=== PATIENT | female | born 1985 | race Caucasian/White ===

== ENCOUNTER 2018-01-09 14:25 | Outpatient (CLI) | payer OTHER ==
--- NOTE | 2018-01-09 16:10 | ULT ---
ULTRASOUND OB 01/09/18 HISTORY: Placenta previa. COMPARISON: None. FINDINGS: Ultrasound pope scale, color doppler analysis of the gravid uterus is performed. The tip of the placenta is separate from the cervix. No placenta previa. The adnexa is normal. Single viable intrauterine with an average ultrasound age of 30 week, 1 day. Estimated delivery of 03/19/18. Estimated weight is 3 lb. 5 oz, 56th percentile. Biparietal diameter 7.49 cm, 30 week, 0 day, 53rd percentile. Head circumference 27.6 cm, 30 week, 1 day, 32nd percentile. Abdominal circumference 25.94 cm, 30 week, 1 day, 61st percentile. Femur length 5.74 cm, 30 week, 1 day, 49th percentile. Amniotic fluid index is 31.9 cm. position is vertex. Placenta is posterior. The visualized cerv icothoracic and lumbar spine as well as sacrum, bladder, diaphragm, left and right kidney, three vess el cord, stomach, looks all unremarkable. IMPRESSION: No evidence of placenta previa. POS: [facility]
== END 2018-01-09 14:26 | disposition home or self-care (01) ==
LOC: SCSULT 14:25
PROVIDERS: ATTEND Family Medicine
DX: O44.23 Partial placenta previa NOS or without hemorrhage, third trimester (principal)
CPT/HCPCS: 76816

== ENCOUNTER 2018-01-09 16:33 | Day surgery (SDC) | payer OTHER ==
[2018-01-09 17:24] VITALS: BMI 35.2
[2018-01-09 17:45] VITALS: BP 149/80; TEMP 98.9
--- NOTE | 2018-01-09 18:00 | PDOC.LDHP ---
Labor and Delivery H&P Chief complaint: other (Elevated BPs) HPI: 32 y/o at 29w4d, patient of Dr. Yessenia Calloway, presents with elevated BPs at home. Denies PIERCE, vision changes, RUQ pain, VB, ctx, LOF, or decreased FM. Has a history of CHTN, not on any medications. Recently did 3 hour GTT but unsure of results. ROS neg for HEENT, cv, pulm, gi, gu, neuro, psych, skin, musculoskeletal or constitutional symptoms other than mentioned above. OB History Details: 1 prior Current complications: hypertension Past Medical History: Tachycardia CHTN Current medications: pre- vitamins, iron, other (melatonin) Previous surgical history: other (LEEP) Allergies/Adverse Reactions: Allergies Allergy/AdvReac Type Severity Reaction Status Date / Time No Known Allergies Allergy Unverified 01/09/18 17:44 Social history: none - Physical Exam Vital signs reviewed and normal: yes General: NAD, resting Lungs: nonlabored breathing Abdomen: gravid Extremeties: no edema FHT: category 1 (120s, mod variability, + accels, no decels) [place] contractions every: none - OB Labs Additional Labs: Laboratory Results - last 24 hr 01/09/18 01/09/18 01/09/18 18:11 18:11 18:40 WBC 12.6 H RBC 3.53 L Hgb 11.4 L Hct 32.1 L MCV 90.8 MCH 32.2 H MCHC 35.4 RDW 12.7 Plt Count 389 MPV 5.8 L Neutrophils % 73.2 Lymphocytes % 20.4 L Monocytes % 5.9 Eosinophils % 0.4 Basophils % 0.2 Neutrophils # 9.2 H Lymphocytes # 2.6 Monocytes # 0.7 H Eosinophils # 0.0 Basophils # 0.0 Sodium 139 Potassium 3.8 Chloride 109 H Carbon Dioxide 19 L Anion Gap 15 BUN 4 L Creatinine 0.60 Estimated GFR (MDRD) Greater than 90 Glucose 80 Calcium 9.5 Total Bilirubin 0.3 AST 14 ALT 10 Alkaline Phosphatase 82 Serum Total Protein 7.3 Albumin 3.8 Globulin 3.5 Albumin/Globulin Ratio 1.1 L U Random Total Protein Less than 10 Urine Creatinine 37.15 L - Assessment 32 y/o at 29w4d with no e/o preeclampsia. BPs mild range initially but normal now. status reassuring with reactive NST. - Plan -: D/c home with precautions. Advised to continue monitoring BPs and bring cuff to next appointment. Make appointment with Dr. Calloway next week.
[2018-01-09 18:19] LABS: #Lymphocytes 2.6 thou/uL (1.20-3.40); #Monocytes 0.7 thou/uL (0.11-0.59); #Neutrophils 9.2 thou/uL (1.40-6.50); %Basophils 0.2 % (0.0-1.0); %Eosinophils 0.4 % (0.0-10.0); %Lymphocytes 20.4 % (21.0-51.0); %Monocytes 5.9 % (0.0-10.0); %Neutrophils 73.2 % (42.0-75.0); Hemoglobin 11.4 g/dL (12.0-16.0); Mean Corpuscular HGB CONC 35.4 g/dL (32.0-36.0); Mean Corpuscular Hemoglobin 32.2 pg (27.0-31.0); Mean Corpuscular Volume 90.8 fL (78.0-98.0); Mean Platelet Volume 5.8 fL (7.4-10.4); Platelet Count 389 thou/uL (130-400); RBC Distribution Width 12.7 % (11.5-14.5); Red Blood Cell (RBC) Count 3.53 mill/uL (4.20-5.40); White Blood Cell (WBC) Count 12.6 thou/uL (4.8-10.8)
[2018-01-09 18:42] LABS: ALT (SGPT) 10 U/L (8-55); AST (SGOT) 14 U/L (5-34); Albumin 3.8 g/dL (3.5-5.0); Alkaline Phosphatase 82 U/L (40-150); Anion Gap 15 mmol/L (10-20); BUN (Urea Nitrogen) 4 mg/dL (7.0-18.7); Bilirubin, Total 0.3 mg/dL (0.2-1.2); Calc. Creatinine Clearance 226 mL/min (70-130); Calcium 9.5 mg/dL (7.8-10.44); Carbon Dioxide 19 mmol/L (22-29); Chloride 109 mmol/L (98-107); Estimated GFR-MDRD Greater than 90; Globulin 3.5 g/dL (2.4-3.5); Glucose 80 mg/dL (70-105); Potassium 3.8 mmol/L (3.5-5.1); Protein, Total 7.3 g/dL (6.0-8.3); Sodium 139 mmol/L (136-145)
[2018-01-09 19:36] LABS: Creatinine, Urine 37.15 mg/dL (47-110); Protein, Urine Random Quant Less than 10 mg/dL (1-14)
[2018-01-09] MEDS ORDERED: Insulin Glargine 8 UNITS in Pre-Filled Syringe 1 EACH SC SCH (21:00)
== END 2018-01-09 20:16 | disposition home or self-care (01) ==
LOC: L&D/OP 16:33
PROVIDERS: ATTEND Family Medicine
DX: O10.913 Unspecified pre-existing hypertension complicating pregnancy, third trimester (principal); Z3A.29 29 weeks gestation of pregnancy
CPT/HCPCS: 36415; 80053; 82570; 84156; 85025; 99283

== ENCOUNTER 2018-03-18 06:51 | Inpatient (IN) | payer OTHER ==
[2018-03-18] MEDS ORDERED: Bupivacaine HCl 0.5%/Epinephrine 1:200,000/PF 30 ml Vial ONE (11:00)
[2018-03-18] MEDS ORDERED: Lidocaine 2% MPF 10 ML AMP (For Epidural Use) ONE (11:00)
[2018-03-18] MEDS ORDERED: Bupivacaine/Epinephrine 0.25% 30 ML VIAL ONE (11:00)
[2018-03-18] MEDS ORDERED: Bupivacaine 0.25% HCL 30 ML VIAL ONE (11:00)
[2018-03-18 20:50] VITALS: BMI 39.6
[2018-03-18] MEDS ORDERED: Lidocaine 1% (PF) 30 ML VIAL SC PRN (20:50)
[2018-03-18] MEDS ORDERED: Butorphanol Tartrate 1 MG/ML VIAL SLOW IVP PRN (20:50)
[2018-03-18] MEDS ORDERED: Acetaminophen 500 MG TAB PO PRN (20:50)
[2018-03-18] MEDS ORDERED: Acetaminophen/Codeine 30-300mg Tablet PO PRN (20:50)
[2018-03-18] MEDS ORDERED: Misoprostol 200 MCG TAB PR PRN (20:50)
[2018-03-18] MEDS ORDERED: Ondansetron PF 4 MG/2 ML Vial IVP PRN (20:50)
[2018-03-18] MEDS ORDERED: Promethazine HCl 25 MG/ML VIAL IM PRN (20:50)
[2018-03-18] MEDS ORDERED: Zolpidem Tartrate 5 MG TAB PO PRN (20:50)
[2018-03-18] MEDS ORDERED: NS w/ Oxytocin 10 units 500 ML IV SCH ×2 (20:50)
[2018-03-18] MEDS ORDERED: NS / Oxytocin 40 units/1000ml 1,000 ML IV PRN (20:50)
[2018-03-18] MEDS ORDERED: HYDROcodone/Acetaminophen 5/325 mg Tablet PO PRN (20:50)
[2018-03-18] MEDS ORDERED: Ibuprofen 800 MG TAB PO PRN (20:50)
[2018-03-18] MEDS: Lactated Ringer's 1,000 ML IV SCH (21:15)
[2018-03-18] MEDS: Misoprostol 100 MCG TAB VAG SCH (21:40)
[2018-03-18 21:43] LABS: Hemoglobin 11.2 g/dL (12.0-16.0); Mean Corpuscular HGB CONC 34.6 g/dL (32.0-36.0); Mean Corpuscular Hemoglobin 31.7 pg (27.0-31.0); Mean Corpuscular Volume 91.5 fL (78.0-98.0); Mean Platelet Volume 6.5 fL (7.4-10.4); Platelet Count 389 thou/uL (130-400); RBC Distribution Width 12.9 % (11.5-14.5); Red Blood Cell (RBC) Count 3.54 mill/uL (4.20-5.40); White Blood Cell (WBC) Count 9.2 thou/uL (4.8-10.8)
[2018-03-18 22:21] LABS: Syphilis Antibody Nonreactive (Nonreactive); Syphilis Antibody Index 0.04 S/CO (<1.00 Non-Reactive)
[2018-03-18 23:14] LABS: HBSAg Index 0.18 S/CO (0-0.99); Hep B Surf Ag Non-Reactive S/CO (NonReactive)
[2018-03-19] MEDS ORDERED: Penicillin G Potassium 5 MILL.UNITS in Sodium Chloride 0.9% 100 ML IVPB SCH (01:15)
[2018-03-19] MEDS: Lactated Ringer's 1,000 ML IV SCH ×2 (04:51→18:41)
[2018-03-19] MEDS: Misoprostol 100 MCG TAB VAG SCH ×3 (04:51→18:41)
[2018-03-19] MEDS: Penicillin G 2.5 MILL.units 2.5 MILL.UNITS in Premix Bag 1 BAG IVPB SCH ×3 (04:52→18:41)
[2018-03-19] MEDS ORDERED: Fentanyl 4 mcg/Bup 0.1% Cadd 100 ML ONE (07:20)
[2018-03-19] MEDS ORDERED: Eucerin (Mineral Oil/Petrolatum,White) 30 gm Jar TOP PRN (08:40)
[2018-03-19] MEDS ORDERED: ePHEDrine/0.9% NaCl/PF SYRINGE 50 mg/10 ml SLOW IVP PRN (08:40)
[2018-03-19] MEDS ORDERED: Promethazine HCl 25 MG/ML VIAL IM PRN (08:40)
[2018-03-19] MEDS ORDERED: Ondansetron PF 4 MG/2 ML Vial IVP PRN ×2 (08:40→17:01)
[2018-03-19] MEDS ORDERED: Lactated Ringer's 500 ML IV PRN (08:40)
[2018-03-19] MEDS ORDERED: diphenhydrAMINE 50 MG/ML VIAL IVP PRN (08:40)
[2018-03-19] MEDS ORDERED: Naloxone HCl 0.4 mg/ml Vial IVP PRN ×2 (08:40)
[2018-03-19] MEDS ORDERED: Fentanyl 4 mcg/Bupivacaine 0.1% Cassette 100 ML EPIDURAL SCH (08:45)
[2018-03-19] MEDS ORDERED: Communication Order-Pharmacy FS SCH (08:45)
[2018-03-19] MEDS ORDERED: Fentanyl 100 MCG/2 ML VIAL ONE (13:15)
[2018-03-19] MEDS ORDERED: Acetaminophen/Codeine 30-300mg Tablet PO PRN (17:01)
[2018-03-19] MEDS ORDERED: HYDROcodone/Acetaminophen 5/325 mg Tablet PO PRN (17:01)
[2018-03-19] MEDS ORDERED: NS / Oxytocin 40 units/1000ml 1,000 ML IV SCH (17:01)
[2018-03-19] MEDS ORDERED: Benzocaine/Menthol 20-0.5% 60 ML CAN TOP PRN (17:01)
[2018-03-19] MEDS ORDERED: Bisacodyl 10 MG SUPP PR PRN (17:01)
[2018-03-19] MEDS ORDERED: Milk Of Magnesia 30 ML UDCUP PO PRN (17:01)
[2018-03-19] MEDS ORDERED: diphenhydrAMINE 25 MG CAP PO PRN (17:01)
[2018-03-19] MEDS ORDERED: Preparation H Ointment 28 GM TUBE PR PRN (17:01)
[2018-03-19] MEDS ORDERED: Lanolin Ointment 7 GM TUBE TOP PRN (17:01)
[2018-03-19] MEDS ORDERED: NS / Oxytocin 40 units/1000ml 1,000 ML ONE (17:11)
[2018-03-19] MEDS ORDERED: Docusate Calcium (SURFAK) 240 MG CAP PO SCH (17:15)
[2018-03-19] MEDS ORDERED: Prenatal Vitamin 1 TAB PO SCH (17:15)
[2018-03-19] MEDS: Ferrous Sulfate 325 MG TAB PO SCH (17:32)
[2018-03-19] MEDS: Ibuprofen 800 MG TAB PO SCH (18:35)
[2018-03-19] MEDS: Docusate Calcium (SURFAK) 240 MG CAP PO SCH (21:30)
[2018-03-19] MEDS ORDERED: hydrOXYzine Pamoate 25 mg Capsule PO SCH ×2 (22:45)
[2018-03-20] MEDS: Ibuprofen 800 MG TAB PO SCH ×3 (01:07→17:24)
[2018-03-20] MEDS: Acetaminophen 325 MG TAB PO PRN ×2 (03:12→15:06)
[2018-03-20] MEDS: Ferrous Sulfate 325 MG TAB PO SCH ×2 (07:40→17:24)
[2018-03-20] MEDS: Prenatal Vitamin 1 TAB PO SCH (09:03)
[2018-03-20] MEDS: Docusate Calcium (SURFAK) 240 MG CAP PO SCH ×2 (09:03→21:06)
[2018-03-21] MEDS: Ibuprofen 800 MG TAB PO SCH ×2 (00:36→09:11)
[2018-03-21] MEDS: Acetaminophen 325 MG TAB PO PRN ×2 (04:43→09:11)
[2018-03-21] MEDS: Ferrous Sulfate 325 MG TAB PO SCH (09:10)
[2018-03-21] MEDS: Docusate Calcium (SURFAK) 240 MG CAP PO SCH (09:11)
[2018-03-21] MEDS: Prenatal Vitamin 1 TAB PO SCH (09:12)
--- NOTE | 2018-03-21 12:34 | PDOC.PP ---
Post Progress Note Post Day #: 2 Subjective: Doing well, no c/o PO intake tolerated: yes Flatus: yes Ambulation: yes Vital Signs (12 hours) Temp Pulse Resp BP Pulse Ox 03/21/18 08:46 98.1 F 85 12 126/87 98 03/21/18 00:38 75 18 117/65 Weight Weight 246 lb - Physical Examination General: NAD Cardiovascular: no m/r/g, RRR Respiratory: clear to auscultation bilaterally, non-labored breathing Abdominal: + bowel sounds, lochia, no distention, appropriately TTP Result Diagrams: 03/18/18 21:15 Additional Labs: Post Labs Blood Type A POSITIVE 03/18/18 21:15 Hep Bs Antigen Non-Reactive S/CO (NonReactive) 03/18/18 21:15 (1) Vaginal delivery Code(s): O80 - ENCOUNTER FOR FULL-TERM UNCOMPLICATED DELIVERY Status: Acute - Assessment/Plan Routine care F/U in 6 weeks
[2018-03-21 12:45] VITALS: BP 150/87; TEMP 98.2
== END 2018-03-21 13:41 | disposition home or self-care (01) | DRG 807 ==
LOC: EDSTATUS 14:33 → L&D 20:39 → 3SE 03-19 17:30
PROVIDERS: ADMIT Family Medicine; ATTEND Family Medicine
PROC: 10E0XZZ Delivery of Products of Conception, External Approach (ICD-10-PCS; principal; 2018-03-19)
PROC: 0HQ9XZZ Repair Perineum Skin, External Approach (ICD-10-PCS; 2018-03-19)
PROC: 10907ZC Drainage of Amniotic Fluid, Therapeutic from Products of Conception, Via Natural or Artificial Opening (ICD-10-PCS; 2018-03-19)
PROC: 3E033VJ Introduction of Other Hormone into Peripheral Vein, Percutaneous Approach (ICD-10-PCS; 2018-03-19)
DX: O16.4 Unspecified maternal hypertension, complicating childbirth (principal); Z37.0 Single live birth; O70.0 First degree perineal laceration during delivery; Z3A.39 39 weeks gestation of pregnancy; F41.0 Panic disorder [episodic paroxysmal anxiety]; O99.824 Streptococcus B carrier state complicating childbirth
CPT/HCPCS: 51702; 85027; 86780; 86850; 86900; 86901; 87340; J0670; J2001; J2540; J3010; J7050; Q0177; S0020

== ENCOUNTER 2018-09-17 10:04 | Outpatient (CLI) | payer OTHER ==
--- NOTE | 2018-09-17 11:12 | RAD ---
PA AND LATERAL CHEST: Date: 09/17/18 HISTORY: Tachycardia. FINDINGS: Heart size and mediastinum are within normal limits. Lungs are clear of infiltrates. There are no sig nificant bony findings. IMPRESSION: No active intrathoracic disease. POS: [facility]
== END 2018-09-17 10:05 | disposition home or self-care (01) ==
LOC: BICRAD 10:04
PROVIDERS: ATTEND Family Medicine
DX: R00.0 Tachycardia, unspecified (principal)
CPT/HCPCS: 36415; 71046; 80053; 80061; 84443; 85025